=== PATIENT | female | born 1995 | race Two or more races ===

== ENCOUNTER 2020-05-25 08:12 | Emergency (ER) | payer OTHER ==
[~2020-05-25] VITALS: Ht 149.9 cm; Wt 49.9 kg
--- NOTE | 2020-05-25 08:24 | NUR ---
pt presents c/o palpitations that began this AM. pt reports feeling anxious and mildly SOB. pt also having some mild intermittent nausea and repost that she was having some chest discomfort [employer] but now denies no resp. distress. pink warm and dry. EKG has been to bedside no family at bedside
--- NOTE | 2020-05-25 08:52 | NUR ---
BREAK RN: DR HOPSON AT BEDSIDE. PT ASSESSMENT POC DISCUSSED AND QUESTIONS ANSWERED. CALL LIGHT W/I REACH, VSS, NAD NOTED.
[2020-05-25] MEDS ORDERED: ONDANSETRON ODT 4 MG ONE (08:55)
[2020-05-25 09:13] LABS: BASOPHILS % (AUTO) 1 % (0-1); EOSINOPHILS % (AUTO) 1 % (1-7); LYMPHOCYTES % (AUTO) 29 % (22-44); MEAN CORPUSCULAR HEMOGLOBIN 31.4 pg (27.0-34.8); MEAN CORPUSCULAR HGB CONC 34.5 g/dL (32.4-35.8); MEAN PLATELET VOLUME 8.1 fL (7.4-10.4); MONOCYTES % (AUTO) 5 % (2-9); NEUTROPHILS % (AUTO) 64 % (42-75); PLATELET COUNT 267 x10^3/uL (130-400); RED BLOOD COUNT 4.83 x10^6/uL (3.82-5.3); RED CELL DISTRIBUTION WIDTH 12.4 % (9.6-15.2)
[2020-05-25 09:20] LABS: ALBUMIN 3.9 g/dL (3.4-5.0); ANION GAP 11 mmol/L (5-15); CALCIUM 8.9 mg/dL (8.5-10.1); CHLORIDE 110 mmol/L (98-107); CREATININE 0.86 mg/dL (0.55-1.02)
[2020-05-25 09:23] LABS: MD NO
[2020-05-25 09:25] LABS: TROPONIN I < 0.015 ng/mL (0.000-0.045)
[2020-05-25] MEDS ORDERED: ONDANSETRON ODT 4 MG PO ONE (09:30)
--- NOTE | 2020-05-25 09:50 | NUR ---
pt has been medicated per order. sittin up on gurney in no apparent distress. denies CP or SOB. no vomiting noted since admit awaiting test results
--- NOTE | 2020-05-25 10:22 | NUR ---
no changes. pt sitting up in no apparent distress. no new c/o. awaiting lab results. lab contacted
[2020-05-25 11:20] VITALS: BP 110/70
--- NOTE | 2020-05-25 11:35 | NUR ---
this pt was d/C by another RN
== END 2020-05-25 11:22 | disposition home or self-care (01) ==
LOC: ED 09:13
DX: R07.89 Other chest pain (principal); R00.2 Palpitations; F41.1 Generalized anxiety disorder; R00.0 Tachycardia, unspecified
CPT/HCPCS: 36415; 71045; 80048; 82040; 84484; 84703; 85025; 85379; 93005; 99285; Q0162